=== PATIENT | female | born 1980 | race Caucasian/White ===

== ENCOUNTER 2023-02-18 12:37 | Emergency (ER) | payer OTHER ==
[~2023-02-18] VITALS: Ht 165.1 cm; Wt 73.5 kg
[2023-02-18 12:38] VITALS: BP_SYST 145; PULSE 66; RESP 17; TEMP 97.9; O2SAT 97
[2023-02-18 13:26] LABS: BASOPHILS # (AUTO) 0.1 K/uL (0.0-0.2); BASOPHILS % (AUTO) 0.4 % (0.0-2.0); EOSINOPHILS # (AUTO) 0.1 K/uL (0.0-0.4); EOSINOPHILS % (AUTO) 0.8 % (0.0-4.0); HEMATOCRIT 39.7 % (36-48); HEMOGLOBIN 12.9 g/dL (12.0-16.0); LYMPHOCYTES # (AUTO) 2.4 K/uL (1.0-5.5); LYMPHOCYTES % (AUTO) 18.4 % (20.5-51.5); MEAN CORPUSCULAR HEMOGLOBIN 30 pg (27-31); MEAN CORPUSCULAR HGB CONC 33 % (32-36); MEAN CORPUSCULAR VOLUME 93 fL (79.0-98.0); MONOCYTES # (AUTO) 0.8 K/uL (0.0-1.0); MONOCYTES % (AUTO) 6.3 % (1.7-9.3); NEUTROPHILS # (AUTO) 9.6 K/uL (1.8-7.7); NEUTROPHILS % (AUTO) 74.1 % (40.0-70.0); PLATELET COUNT (AUTO) 299 K/uL (130-430); RED BLOOD CELL COUNT(AUTO) 4.29 MIL/uL (4.2-6.2); RED CELL DISTRIBUTION WIDTH 12.5 % (9.0-15.0)
[2023-02-18 13:35] LABS: CALCIUM 8.9 mg/dL (8.4-11.0); CREATININE 0.64 mg/dL (0.55-1.30); POTASSIUM 3.8 mmol/L (3.5-5.1)
[2023-02-18 13:40] LABS: ALBUMIN 3.3 g/dL (3.4-4.8); TOTAL BILIRUBIN 0.2 mg/dL (0.0-1.0)
[2023-02-18] MEDS ORDERED: IBUP-1969 PO ×2 (15:16→15:41)
[2023-02-18] MEDS ORDERED: CYCL10TA24 PO ×2 (15:16→15:41)
[2023-02-18 16:02] VITALS: BP_SYST 122; PULSE 63; RESP 16; TEMP 97.9; O2SAT 95
[2023-02-18 16:46] LABS: TOTAL PROTEIN, SERUM 7.7 g/dL (6.4-8.3)
== END 2023-02-18 15:51 | disposition home or self-care (01) ==
LOC: SED 12:37
DX: M54.2 Cervicalgia (principal); R25.2 Cramp and spasm; R51.9 Headache, unspecified; M25.511 Pain in right shoulder; Z79.899 Other long term (current) drug therapy
CPT/HCPCS: 36415; 70450-TC; 72125-TC; 76376; 80053; 81025; 85025; 99284